=== PATIENT | male | born 1995 | race Hispanic/Latino ===

== ENCOUNTER 2024-12-07 14:05 | Emergency (ER) | payer OTHER, SELFPAY ==
[2024-12-07] VITALS (10 sets, daily range): BP systolic 121–143; BP diastolic 75–83; PULSE 67–79; RESP 14–24; TEMP 36.2–37; O2SAT 97–100; BMI 32.7
--- NOTE | 2024-12-07 14:59 | ED.VIS.GI ---
HPI HPI - GI History of Present Illness Chief Complaint: Abd Pain Narrative Narrative: Patient is a 29-year-old male presenting to the emergency department for abdominal pain and a rash. Patient arrives with friend. Health Information Internship was offered however patient states he feels comfortable with his friend interpreting for him. Patient states that about 3 years ago he developed left upper quadrant pain that is intermittent. States that 3 days ago he started having abdominal pain in a band like pattern across his mid abdomen to his right side. He then developed a rash on his right side. He reports the pain is a burning sensation. Endorses nausea sometimes in the morning. Denies fever, chills, chest pain, SOB, vomiting, diarrhea, constipation, dysuria or hematuria. Reports the rash is burning and itching. PFSH PFSH Medical History no medical history Home Medications ?Medication ?Instructions ?Recorded ?Last Taken ?Type acyclovir 800 mg tablet See Rx Instructions .Route 12/07/24 Unknown Rx .COMPLEX 7 days #35 tabs gabapentin 300 mg capsule 300 mg PO DAILY #14 caps 12/07/24 Unknown Rx Allergy/AdvReac Type Severity Reaction Status Date / Time No Known Allergies Allergy Verified 12/07/24 14:09 Social History Smoking Status: Never smoker ROS ROS ED ROS Narrative see HPI EXAM Physical Exam Narrative Exam Narrative: Vital signs: Reviewed General: Alert and orientedx3. No acute distress HEENT: Head is normocephalic and atraumatic, sinuses nontender, pupils equal round and reactive. Nares are patent. Oropharynx and throat exams normal. Neck: Supple without lymphadenopathy nontender Cardiovascular: Regular rate and rhythm, no murmurs. No rubs or gallops. Normal S1 and S2 Respiratory: Clear to auscultation bilaterally. No wheezes, rales, rhonchi Abdominal: Soft and mild diffuse tenderness to palpation in all quadrants. There is a vesicular rash on an erythematous base in the right upper quadrant extending to the right flank. Normal bowel sounds. No guarding or rebound. Nonsurgical abdomen Extremities: No tenderness. No bruising. Normal range of motion. Normal sensation. Skin: No rash or redness. Neurological: Cranial nerves II through XII are grossly intact. Normal strength and sensation. Normal cerebellar function The rest of the physical exam is unremarkable Const Vital Signs: 12/07/24 14:06 12/07/24 16:06 12/07/24 16:15 Temperature 97.2 F L Temperature Source Temporal Pulse Rate 79 74 Respiratory Rate 16 23 H Blood Pressure 134/81 H Blood Pressure Mean 98 Pulse Ox 99 97 97 Oxygen Delivery Method Room Air 12/07/24 16:17 12/07/24 16:30 12/07/24 16:45 Temperature Temperature Source Pulse Rate 67 78 Respiratory Rate 19 H 14 Blood Pressure 121/75 H 137/82 H 132/76 H Blood Pressure Mean 89 98 91 Pulse Ox 98 98 Oxygen Delivery Method Room Air Room Air 12/07/24 17:00 12/07/24 17:15 12/07/24 17:16 Temperature Temperature Source Pulse Rate 71 79 Respiratory Rate 21 H 24 H Blood Pressure 137/80 H 143/83 H Blood Pressure Mean 95 99 Pulse Ox 98 99 Oxygen Delivery Method Room Air 12/07/24 17:25 Temperature 98.6 F Temperature Source Pulse Rate 78 Respiratory Rate 14 Blood Pressure 143/83 H Blood Pressure Mean 103 Pulse Ox 100 Oxygen Delivery Method MDM MDM MDM Narrative Medical decision making narrative: Patient is a 29-year-old male presenting to the emergency department for abdominal pain and a rash. Patient was seen and examined. Vitals are stable. Patient resting in bed comfortably in no acute distress. Differential includes but is not limited to: Colitis, constipation, pancreatitis, cholecystitis, appendicitis, UTI Based on the physical exam it appears that the patient has shingles. This is likely what is causing his burning pain in a bandlike pattern on his right side. However patient reports that he is also having pain on the left side and is tender in all quadrants on examination. Therefore labs and imaging were obtained. CBC with no leukocytosis and normal hemoglobin. CMP with no significant abnormalities. Lipase within normal limits. Urinalysis with no evidence of urinary tract infection. CT shows no acute abnormality. Patient reevaluated and updated on the negative workup. Shingles rash was explained to the patient and precautions that need to be taken. Patient was started on acyclovir for home. Instructed to take NSAIDs at home for pain control and also prescribed gabapentin if needed. No evidence of disseminated infection. No evidence of shingles involving the face, eyes or ears. Patient discharged from the Emergency Department. I do not feel that the patient's evaluation reveals any acute reason for admission at this time. I instructed them to either follow-up with their primary care physician or promptly return to the Emergency Department for reevaluation should symptoms worsen or new symptoms develop. I explained what symptoms would indicate the need to return to the emergency department. Shared decision making was used. The patient voiced understanding of the treatment plan and is agreeable with it. Clinical impression: Shingles Abdominal pain History & Record Review Discussion w/independent historian: Patient Lab Data Attestation: I reviewed the patient's lab results. Labs: Laboratory Results - last 24 hr 12/07/24 12/07/24 14:21 15:46 WBC 7.1 RBC 5.06 Hgb 14.8 Hct 43.3 MCV 85.6 MCH 29.2 MCHC 34.2 RDW Std Deviation 39.2 RDW Coeff of Donna 12.7 Plt Count 275 MPV 9.8 Immature Gran % (Auto) 0.400 Neut % (Auto) 64.0 Lymph % (Auto) 24.0 [place] % (Auto) 9.4 Eos % (Auto) 1.6 Baso % (Auto) 0.6 Absolute Neuts (auto) 4.5 Absolute Lymphs (auto) 1.70 Nucleated RBC % 0 Sodium 141 Potassium 4.3 Chloride 106 Carbon Dioxide 21.7 Anion Gap 13 BUN 8 Creatinine 0.61 L Estim Creat Clear Calc 163.30 Est GFR (MDRD) Non-Af 133 BUN/Creatinine Ratio 12.5 Glucose 106 H Calcium 9.3 Total Bilirubin 0.36 AST 13 ALT 13 Alkaline Phosphatase 72 Total Protein 6.7 Albumin 4.1 Globulin 2.6 Albumin/Globulin Ratio 1.6 Lipase 15 Urine Color Yellow Urine Clarity Clear Urine pH 6.5 Ur Specific [place] 1.010 Urine Protein 15 H Urine Glucose (UA) Normal Urine Ketones Negative Urine Occult Blood 10 H Urine Nitrite Negative Urine Bilirubin Negative Urine Urobilinogen Normal Ur Leukocyte Esterase Negative Urine RBC 0-5 SEEN Urine WBC 0-5 SEEN Ur Squamous Epith Cells 0-5 SEEN Urine Bacteria 0 SEEN Urine Mucus 0 SEEN Radiography Diagnostic Testing: Clinical Impression(s) from Imaging Studies Abdomen/Pelvis CT 12/07/24 15:18 IMPRESSION: No acute abnormality is seen. Reading Location: [id number] Discharge Plan Triage Chief Complaint: Abd Pain ED Provider: Maryjane Cha Dx/Rx/DC Orders Clinical Impression: Shingles rash Instructions: ED Shingles (Herpes Zoster) Prescriptions: New acyclovir 800 mg tablet See Rx Instructions .ROUTE .COMPLEX 7 Days Qty: 35 0RF Rx Instructions: 800 mg orally ;while awake; give 5 doses in 24 hours gabapentin 300 mg capsule 300 mg PO DAILY Qty: 14 0RF Primary Care Provider: Care Physician,No Primary Referrals: Lisa Ascencio MD [Med Staff - [facility] Worker, Internal Medicine] - As soon as possible Care Physician,No Primary [Primary Care Provider, Medical] Activity Restrictions/Additional Instructions: Take the medications as prescribed. You can take NSAIDs which include Advil, Motrin, ibuprofen or Aleve for pain control. Your evaluation in the Emergency Department did not reveal any acute reason for admission. However, I want to emphasize that you may be early in the course of a disease process or illness even if it is not present. For this reason you should follow-up within 24 hours for reevaluation with either your primary care physician or if necessary back here in the Emergency Department. You should return to the Emergency Department immediately if your symptoms worsen or new symptoms develop. Print Language: Greek Disposition Disposition: Home, Self Care Discharge Date/Time: 12/07/24 17:26
[2024-12-07 15:06] LABS: Hematocrit 43.3 % (40-54); Hemoglobin 14.8 g/dL (13.0-16.5); Immature Granulocytes Count 0.030 X10^3/uL (0.0-0.0); Mean Corp Hgb Conc 34.2 g/dL (32-36); Mean Corpuscular Volume 85.6 fL (80-94); Mean Platelet Vol. 9.8 fl (6.2-12.0); NRBC Flagged by Analyzer 0 % (0-5); Platelet Count 275 K/mm3 (150-450); RBC Distribution Width CV 12.7 % (11.6-14.6); RBC Distribution Width SD 39.2 fl (35.1-43.9); Red Blood Count 5.06 M/mm3 (4.6-6.2); White Blood Count 7.1 K/mm3 (4.4-11.0)
--- NOTE | 2024-12-07 15:18 | CT_ITS ---
PROCEDURE: ABDOMEN/PELVIS W IV CONT ONLY 12/07/2024 REASON FOR EXAM: ALL OVER ABD PAIN TECHNIQUE: Procedure Code: [id number] Modality: CT Procedure: ABDOMEN/PELVIS W IV CONT ONLY Coronal and Sagittal reconstruction series were provided. CONTRAST: Isovue-300 VOLUME: 100 mL One or more dose reduction techniques were used (e.g., Automated exposure control, adjustment of the mA and/or kV according to patient size, use of iterative reconstruction technique. RADIATION DOSE SUMMARY: CTDlvol: 11.15 mGy DLP: 652.60 mGycm COMPARISON: None FINDINGS: Lung bases: The lung bases are clear. Liver: Diffuse fatty infiltration. Gallbladder: Unremarkable Spleen: Normal size. Pancreas: Normal size without evidence of mass surrounding inflammation or ductal dilation. Adrenals: Unremarkable Kidneys: Normal renal sizes. No hydronephrosis. Bladder: Unremarkable Minimal central prostatic calcification. Bowel: Unremarkable Appendix: Unremarkable Lymph nodes: Unremarkable. Vasculature: The abdominal aorta and IVC are normal. Peritoneum / Retroperitoneum: Unremarkable Bones: Straightening of the normal lumbar lordosis. CT/Abdomen/Pelvis W IV Cont ONLY IMPRESSION: No acute abnormality is seen. Reading Location: [id number]
--- NOTE | 2024-12-07 15:38 | ED.RN ---
LAB CALLED FOR UNRECEIVED BLOOD WORK. RESPONSE I WILL LOOK THEY WERE WHITE LABELED. I WILL GIVE YOU A CALL BACK IF THERE IS A PROBLEM
[2024-12-07 15:50] LABS: Mucous, Urine 0 SEEN /hpf (<or=2+)
[2024-12-07 15:58] LABS: Color, Urine Yellow (Yellow); Glucose, Dipstick Normal (Normal); Ketone-Dipstick Negative (Negative); Leukocyte Esterase-Dipstick Negative /ul (Negative); Nitrite-Dipstick Negative (Negative); Occult Blood-Urine 10 /ul (Negative); Protein-Dipstick 15 mg/dl (Negative); Specific Gravity, Urine 1.010 (1.002-1.030); Urine Bilirubin Dipstick Negative (Negative)
[2024-12-07 16:18] LABS: AST(SGOT) 13 U/L (<=37); Alanine Aminotransfer ALT/SGPT 13 U/L (<=46); Albumin, Serum 4.1 g/dL (3.5-5.0); Alkaline Phosphatase 72 U/L (40-129); Anion Gap 13 (5-15); BUN 8 mg/dL (4-19); BUN/Creat Ratio 12.5 RATIO (10-20); Calcium,Total 9.3 mg/dL (7.6-11.0); Carbon Dioxide 21.7 mmol/L (21.0-32.0); Chloride 106 mmol/L (98-108); Estimated Creatinine Clearance 163.30 ml/min (50-250); Globulin 2.6 g/dL (2.2-4.2); Glucose 106 mg/dL (70-99); Lipase 15 U/L (13-75); Potassium 4.3 mmol/L (3.3-5.1)
--- NOTE | 2024-12-07 17:07 | ED.RN ---
LAB CALLED FOR OUTSTANDING URINE RESULTS. RESPONSE THEY JUST NEED TO BE READ
[2024-12-07 17:16] LABS: Red Blood Cells-Urine 0-5 SEEN /hpf (0-5); Squamous Epithelial Cells - UA 0-5 SEEN /hpf (0-5)
== END 2024-12-07 17:26 | disposition home or self-care (01) ==
PROVIDERS: Emergency Provider Student in an Organized Health Care Education/Training Program; Visit Provider Student in an Organized Health Care Education/Training Program
DX: B02.9 Zoster without complications (principal); R10.9 Unspecified abdominal pain
CPT/HCPCS: 74177; 80053; 81001; 83690; 85025; 99285; Q9967; A4216